=== PATIENT | male | born 1975 | race Caucasian/White ===

== ENCOUNTER 2021-08-28 11:56 | Emergency (ER) | payer SELFPAY ==
[2021-08-28 12:14] VITALS: BP 188/78; PULSE 108; RESP 22; TEMP 36.7; O2SAT 99
--- NOTE | 2021-08-28 13:08 | PC.NURSE ---
Neither of the providers on at this time are able to prescribe subutex. Spoke w/ CORPORATE RECYCLING MANAGER who states that [facility] can prescribe. Called [facility] ([phone]) and they are not accepting patients
--- NOTE | 2021-08-28 13:31 | ED.RECABL ---
HPI - Recheck/Abnormal Lab/Rx General Chief Complaint: Recheck/Abnormal Lab/Rx Stated Complaint: Needs Medication Refill Time Seen by Provider: 08/28/21 13:27 Source: patient Mode of arrival: Ambulatory Limitations: no limitations History of Present Illness HPI narrative: The patient reports moving of this region from [place]. 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 He ran out the medication 2 days ago. He complains of anxiety. He says he can not even walk straight. He has no headache, visual changes, no nausea vomiting. He is in withdrawal. I repeatedly attempted to draw treatment plan for him. He identified that he has been on narcotics repeatedly in the past 2 years, despite initially stating he had been sober. Instead of me being able interview him, the conversation quickly collapsed in the him requesting narcotic pain medications. All alternatives were quickly rejected. No additional clinical information was obtained, he quickly interrupted me repeatedly, demanding narcotics. He has an appointment in 10 days. He refused nonnarcotic options repeatedly. I tried to give him an option of going to [place] as multiple providers in their ER have Subutex credentials. Related Data Home Medications Medication Instructions Recorded Confirmed buprenorphine HCl 8 mg sublingual 8 mg SUBLINGUAL DAILY 08/28/21 08/28/21 tablet Previous Rx's Medication Instructions Recorded clonidine HCl 0.1 mg tablet 0.1 mg PO BEDTIME #20 tab 08/28/21 hydroxyzine HCl 25 mg tablet 25 mg PO QID PRN #30 tab 08/28/21 Allergies Allergy/AdvReac Type Severity Reaction Status Date / Time No Known Drug Allergies Allergy Verified 08/28/21 12:17 Patient History Social History Smoking Status: Current every day smoker Smoking Status: Current every day smoker alcohol intake frequency: 0-2 drinks per day Substance Use Type: former substance user Exam Initial Vital Signs Initial Vital Signs: Vital Signs Temperature 98.1 F 08/28/21 12:14 Pulse Rate 108 H 08/28/21 12:14 Respiratory Rate 22 08/28/21 12:14 Blood Pressure 188/78 H 08/28/21 12:14 Pulse Oximetry 99 08/28/21 12:14 The patient is alert, agitated. He is neurologically intact. He has no gross motor deficits. He has no ataxia. Course Orders Ordered: ED Orders 08/28/21 13:57 [place] [facility] [place] [facility] Discontinued Medications Clonidine HCl (Clonidine 0.1 Mg Tablet) 0.1 mg PO NOW ONE Stop: 08/28/21 14:02 Last Admin: 08/28/21 14:11 Dose: 0.1 mg Documented by: BETH Hydroxyzine Pamoate (Hydroxyzine Pamoate 25 Mg Capsule) 50 mg PO NOW ONE Stop: 08/28/21 14:02 Last Admin: 08/28/21 14:11 Dose: 50 mg Documented by: BETH Lorazepam (Lorazepam 0.5 Mg Tablet) 1 mg PO NOW ONE Stop: 08/28/21 15:08 Last Admin: 08/28/21 15:12 Dose: 1 mg Documented by: LYLY Vital Signs Vital signs: Vital Signs - 8 hr 08/28/21 12:14 08/28/21 14:11 08/28/21 15:17 Temperature 98.1 F Pulse Rate 108 H 108 H 90 Respiratory Rate 22 16 Blood Pressure 188/78 H 188/78 H 166/78 H Pulse Oximetry 99 99 MDM - Recheck/Abnormal Lab/Rx Medical Records Medical records narrative: After leaving Against Medical Advice, the patient did return and accepted Boring Machine Operator Production input, who presented him with options. He accepted my 1st offer of clonidine and hydroxyzine. A single Ativan was given. There was no additional evaluation performed. Discharge Plan Departure Patient Disposition: Home Clinical Impression: Anxiety Activity Restrictions/Additional Instructions: Multiple ER doctors in [place] have Subutex credentials, I know that the doctor there tonight he has Subutex credentials. The majority of the ER doctors at this facility do not have Subutex credentials. I do recommend clonidine 2 times daily, and hydroxyzine every 6 hours. Social work will likely be willing to help you also. I cannot professionally/legally give prescription narcotics in this situation. Prescriptions: New clonidine HCl 0.1 mg tablet 0.1 mg PO BEDTIME Qty: 20 RF: 0 hydroxyzine HCl 25 mg tablet 25 mg PO QID PRN (Reason: anxiety) Qty: 30 RF: 0 No Action buprenorphine HCl 8 mg Tablet, Sublingual 8 mg SUBLINGUAL DAILY RF: 0
--- NOTE | 2021-08-28 13:46 | PC.NURSE ---
Received call back from [facility], they are unable to accommodate [facility] ([phone]) or [facility] However pt left prior me being able to give him these options.
--- NOTE | 2021-08-28 13:50 | PC.NURSE ---
Pt left prior to discharge instructions. Pt was angry.
--- NOTE | 2021-08-28 13:59 | PC.NURSE ---
Pt returned to ED, apologetic, calm and interactive. INSURANCE SERVICE REPRESENTATIVE services requested as needs are beyond simple subutex script.
[2021-08-28 14:11] VITALS: BP 188/78; PULSE 108
[2021-08-28] MEDS: cloNIDine 0.1 MG TABLET PO (14:11)
[2021-08-28] MEDS: hydrOXYzine pamoate 25 MG CAPSULE 50 MG PO (14:11)
--- NOTE | 2021-08-28 14:25 | CM.SWNOTE ---
PILE TRIMMER Assessment Note PILE TRIMMER receives consult and enters room to meet with patient. Patient is 45 y/o male with concern for needed Subutex prescription. Patient endorses he moved here from [place] recently and his PCP Dr. Graciela Grimes prescribed him a months worth of Subtex but he moved here later than he thought. Patient endorses he last took his Subutex 2 days ago and he is withdrawing. Patient endorses sweats, fatigue and hot flashes. Patient endorses he is residing at the [address] [place] [address] in [place]. Patient endorses he has a camper and friends nearby. Patient endorses he does not have a vehicle and his friends dropped him off at the hospital. ED provider Dr. Hayden and rn relief charge Telma inform patient of [facility] ED provider Dr. Galvez who can prescribe Subutex, it is reported that this provider works this evening. Patient is prescribed medication at this ED to address his current symptoms. PILE TRIMMER discusses [facility] outpatient facilities that can prescribe patient Subutex. Patient endorses he has heard of [facility] and he has an appt with [facility] on 09/07/21 to connect patient with services. Patient gives PILE TRIMMER to permission to sign patient up for appt with [facility] in [place]. PILE TRIMMER signs patient up for appt request and [facility] is to contact patient for f/u. PILE TRIMMER provides patient with state insurance information so patient can enroll for insurance. PILE TRIMMER provides local [facility] resources to patient. Plan: Patient to d/c to home when medically clear with Taxi voucher assistance if needed and patient to f/u with Subutex rx at [facility] for ongoing continuation of care. Patient to f/u with ED provider at [facility] if patient is seeking Subutex prescription this evening. BORIS Palencia
[2021-08-28] MEDS: LORazepam 0.5 MG TABLET 1 MG PO (15:12)
[2021-08-28 15:17] VITALS: BP 166/78; PULSE 90; RESP 16; O2SAT 99
== END 2021-08-28 15:19 | disposition home or self-care (01) ==
PROVIDERS: Emergency Provider Emergency Medicine
DX: F41.9 Anxiety disorder, unspecified (principal)
CPT/HCPCS: 99283